=== PATIENT | male | born 2005 ===

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

== ENCOUNTER 2024-08-26 15:28 | Emergency (ER) | payer OTHER ==
[~2024-08-26] VITALS: Ht 172.7 cm; Wt 59.0 kg
[2024-08-26 15:45] VITALS: BP 138/82
[2024-08-26] MEDS ORDERED: IBUP600 PO (16:56)
[2024-08-26] MEDS ORDERED: FAMO20 PO (16:56)
== END 2024-08-26 16:36 | disposition home or self-care (01) ==
LOC: ER 15:28
DX: M94.0 Chondrocostal junction syndrome [Tietze] (principal); Z59.89 Other problems related to housing and economic circumstances
CPT/HCPCS: 93005; 93010; 99284-25